=== PATIENT | female | born 1995 | race Native Hawaiian/Other Pacific Islander ===

== ENCOUNTER 2017-10-03 10:38 | Emergency (ER) | payer OTHER ==
--- NOTE | 2017-10-03 11:09 | C.PDOC ---
History Of Present Illness 22-year-old female, presents to the emergency department with complaints of generalized abdominal pain that is associated with nausea and several episodes of non-bloody/non-bilious vomiting and watery/non-bloody diarrhea. Patient states she is unable to tolerate PO. Denies fever, travel, back pain, chest pain , shortness of breath, or any other associated symptoms. Of note, patients boyfriend is sick with similar symptoms, she notes that they both ate "halal food" from a truck last night. No other complaints at this time. Time Seen by Provider: 10/03/17 11:05 Chief Complaint (Nursing): Abdominal Pain History Per: Patient History/Exam Limitations: no limitations Onset/Duration Of Symptoms: Hrs Current Symptoms Are (Timing): Still Present Severity: Moderate Past Medical History Reviewed: Historical Data, Nursing Documentation, Vital Signs Vital Signs: Last Vital Signs Temp 98.7 F 10/03/17 12:59 Pulse 80 10/03/17 12:59 Resp 15 10/03/17 12:59 BP 108/68 10/03/17 12:59 Pulse Ox 97 10/03/17 17:06 Family History: States: No Known Family Hx - Social History Hx Alcohol Use: Yes Hx Substance Use: No - Immunization History Hx Tetanus Toxoid Vaccination: No Hx Influenza Vaccination: No Hx Pneumococcal Vaccination: No Review Of Systems Except As Marked, All Systems Reviewed And Found Negative. Constitutional: Negative for: Fever, Chills Cardiovascular: Negative for: Chest Pain Respiratory: Negative for: Shortness of Breath Gastrointestinal: Positive for: Nausea, Vomiting, Abdominal Pain, Diarrhea Musculoskeletal: Negative for: Back Pain Physical Exam - Physical Exam Appears: Non-toxic, No Acute Distress Skin: Warm, Dry, No Rash Head: Normacephalic Eye(s): bilateral: Normal Inspection, PERRL Nose: Normal Oral Mucosa: Moist Lips: Normal Appearing Neck: Normal ROM, Supple Chest: Symmetrical Cardiovascular: Rhythm Regular, No Friction Rub, No Murmur Respiratory: Normal Breath Sounds, No Accessory Muscle Use Gastrointestinal/Abdominal: Bowel Sounds, Soft, No Tenderness, No Guarding, No Rebound Back: Normal Inspection, No CVA Tenderness Extremity: Normal ROM, No Swelling Neurological/Psych: Oriented x3, Normal Speech, Normal Motor, Normal Sensation Gait: Steady ED Course And Treatment - Laboratory Results Result Diagrams: 10/03/17 12:21 10/03/17 12:21 O2 Sat by Pulse Oximetry: 97 (on RA) Pulse Ox Interpretation: Normal Medical Decision Making Medical Decision Making: Plan: * CMP, Lipase * CBC * IVF, Zofran, Pepcid * UA/HCG * Reassess and Disposition On re-exam, the patient reports improvement of symptoms, Abdomen is soft, non- tender and tolerating PO well. Lungs are CTA, heart is RRR. Follow up with the medical doctor within 1-2 days, Return if worsened. Disposition - Disposition Referrals: [facility] [Outside] Disposition: HOME/ ROUTINE Disposition Time: 13:14 Condition: GOOD Additional Instructions: Follow up with the medical doctor within 1-2 days, Return if worsened. Prescriptions: Famotidine [Pepcid] 20 mg PO BID #20 tab Ibuprofen [Motrin] 1 tab PO TID PRN #30 tab PRN Reason: Pain Nitrofurantoin Macrocrystals [Macrobid] 1 cap PO BID #14 cap Instructions: Gastroenteritis (DC) Forms: [employer] (Colombian) - POA Present On Arrival: None - Clinical Impression Clinical Impression: Gastroenteritis - Scribe Statement The provider has reviewed the documentation as recorded by the Scribe (Shruti Altman) All medical record entries made by the Scribe were at my direction and personally dictated by me. I have reviewed the chart and agree that the record accurately reflects my personal performance of the history, physical exam, medical decision making, and the department course for this patient. I have also personally directed, reviewed, and agree with the discharge instructions and disposition.
[2017-10-03] MEDS ORDERED: Sodium Chloride 0.9% 1,000 ML IV ONE (12:08)
[2017-10-03] MEDS ORDERED: Sodium Chloride 0.9% 1,000 ML ONE (12:20)
[2017-10-03 12:25] LABS: BASO % 0.2 % (0.0-2.0); EOS # 0.1 K/uL (0.0-0.7); EOS % 0.4 % (0.0-4.0); HEMOGLOBIN 15.3 g/dL (11.0-16.0); LYMPH # 0.6 K/uL (1.0-4.3); LYMPH % 3.7 % (20.0-40.0); MEAN CELL VOLUME 89.4 fL (81.0-99.0); MEAN CORPUSCULAR HEMOGLOBIN 30.7 pg (27.0-31.0); MEAN CORPUSCULAR HGB CONC 34.4 g/dL (33.0-37.0); MEAN PLATELET VOLUME 8.7 fL (7.2-11.7); MONO # 0.5 K/uL (0.0-0.8); MONO % 3.4 % (0.0-10.0); NEUT # 13.8 K/uL (1.8-7.0); NEUT % 92.3 % (50.0-75.0); PLATELET COUNT 346 K/uL (130-400); RBC 4.98 Mil/uL (3.80-5.20); RED CELL DISTRIBUTION WIDTH 12.5 % (11.5-14.5)
[2017-10-03 12:33] LABS: HCG,QUALITATIVE URINE NEGATIVE (NEGATIVE)
[2017-10-03 12:37] LABS: ALB/GLOB RATIO 1.3 (1.0-2.1); ALBUMIN 4.3 g/dL (3.5-5.0); ALT/SGPT 24 U/L (9-52); AST/SGOT 23 U/L (14-36); BLOOD UREA NITROGEN 14 mg/dL (7-17); GFR AFRICAN-AMERICAN > 60; GFR NON-AFRICAN AMERICAN > 60; LIPASE 114 U/L (23-300)
[2017-10-03 12:43] LABS: SQUAMOUS EPITHIAL 8 /hpf (0-5); URINE BACTERIA RARE (<OCC); URINE BILIRUBIN NEGATIVE (NEGATIVE); URINE BLOOD 1+ (NEGATIVE); URINE CLARITY Hazy (Clear); URINE COLOR Yellow (YELLOW); URINE GLUCOSE (UA) NORMAL (Normal); URINE LEUKOCYTE ESTERASE 1+ Leu/uL (Negative); URINE NITRATE POSITIVE (NEGATIVE); URINE PROTEIN NEGATIVE (NEGATIVE); URINE UROBILINOGEN NORMAL mg/dL (0.2-1.0)
[2017-10-03 12:58] LABS: BANDS 6 % (0-2); LYMPHOCYTE 6 % (20-40); MONOCYTE 2 % (0-10); NEUTROPHIL 86 % (50-75); PLATELET ESTIMATE NORMAL (NORMAL); TOTAL CELLS COUNTED 100
[2017-10-03 13:00] VITALS: BP 108/68; PULSE 80; RESP 15; TEMP 98.7
[2017-10-03 13:17] VITALS: O2SAT 97
== END 2017-10-03 13:43 | disposition home or self-care (01) ==
LOC: C.ER 10:38
DX: K52.9 Noninfective gastroenteritis and colitis, unspecified (principal)
CPT/HCPCS: 80053; 81001; 83690; 84703; 85025; 87086; 87181; 96361; 96374; 96375; 99283; J2405; J7040